=== PATIENT | male | born 1950 | race Caucasian/White ===

== ENCOUNTER 2020-05-19 07:47 | Outpatient (CLI) | payer MEDICARE, OTHER ==
--- NOTE | 2020-05-19 09:21 | MRI ---
MRI RIGHT SHOULDER PERFORMED WITHOUT CONTRAST ENHANCEMENT: Date: 05/19/2020 HISTORY: Right shoulder pain for years. FINDINGS: There is mild arthrosis of the AC joint with a slightly laterally downsloping acromion. There are ten dinosis changes of the infraspinatus tendon, but this appears intact. There is a very thinned appeara nce to the supraspinatus tendon. There is a partial undersurface tear with some retraction of some of the undersurface fibers. Some thin outer bursal fibers are still intact. More anteriorly, there is a focal area which appears to probably represent a full thickness nonretracted tear, and this is assoc iated with some fluid in the subacromial/subdeltoid recess. The subscapularis muscle and tendon are i ntact. The bicipital labral complex shows fairly extensive superior labral tear. There is tendinosis of the interarticular portion of the biceps tendon and a split tear. There is cystic change within the gleno id in this region, and tear extends to involve the posterior superior labrum to approximately mid equ ator level. Along the posterior inferior labrum is a paralabral cyst. There are arthritic changes of the glenohumeral joint space associated with this. The humeral head is slightly posteriorly subluxed. The inferior glenohumeral ligament is intact. IMPRESSION: 1. Moderate grade undersurface tear of the supraspinatus tendon. This appears to have a full thickne ss nonretracted component involving more of the far anterior fibers. 2. 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 In addition, there is a thickened appearance to the intraarticular portion of the biceps tendon and tendinosis change wi th what appears to be a split tear. 3. There is no significant rotator cuff muscle atrophy. There is some very mild atrophy to the super ior fibers of the subscapularis muscle. POS: EFREM
== END 2020-05-19 07:48 | disposition home or self-care (01) ==
LOC: SCSMRI 07:47
PROVIDERS: ATTEND Orthopaedic Surgery
DX: M75.101 Unspecified rotator cuff tear or rupture of right shoulder, not specified as traumatic (principal); M19.011 Primary osteoarthritis, right shoulder; S43.401A Unspecified sprain of right shoulder joint, initial encounter; M25.811 Other specified joint disorders, right shoulder

== ENCOUNTER 2020-06-19 06:36 | Day surgery (SDC) | payer MEDICARE, OTHER ==
[2020-06-18 15:09] VITALS: BMI 31.6
[~2020-06-19 06:36] MED LIST: Fentanyl 100 MCG/2 ML VIAL ONE; Fluorouracil 100 MG, Enoxaparin Sodium 25 MG, EPINEPHrine 0.3 MG in Ophthalmic Irrigati... IRR SCH; Midazolam HCl 2 mg/2 ml Vial ONE
[2020-06-19] MEDS ORDERED: Cyclopentolate 1% Opth Drop 2 ML BOT ONE (07:03)
[2020-06-19] MEDS ORDERED: Phenylephrine 2.5% Ophth Soln 5 ML BOT ONE (07:03)
[2020-06-19] MEDS ORDERED: Enoxaparin Sodium 30 MG/0.3 ML SYRINGE ONE (11:26)
[2020-06-19] MEDS ORDERED: CEFAZOLIN 1 GM VIAL ONE (11:26)
[2020-06-19] MEDS ORDERED: Bupivacaine PF 0.75% SDV 10 ML ONE (11:26)
[2020-06-19] MEDS ORDERED: Metoclopramide HCl 10 MG/2 ML VIAL ONE (11:26)
[2020-06-19] MEDS ORDERED: Ondansetron PF 4 MG/2 ML Vial ONE (11:26)
[2020-06-19] MEDS ORDERED: Maxitrol 0.1% Opth Oint 3.5 GM TUBE ONE (11:26)
[2020-06-19] MEDS ORDERED: Lidocaine 1% PF 5 ML VIAL ONE ×2 (11:26)
[2020-06-19] MEDS ORDERED: PROPOFOL 200 MG/20 ML VIAL ONE (11:26)
[2020-06-19] MEDS ORDERED: Triamcinolone 40 MG/ML VIAL ONE (11:26)
[2020-06-19] MEDS ORDERED: Lidocaine 4% PF 5 ML AMP ONE (11:26)
--- NOTE | 2020-06-19 14:20 | OP ---
DATE OF PROCEDURE: 06/19/2020 PREOPERATIVE DIAGNOSIS: Rhegmatogenous retinal detachment, right eye. POSTOPERATIVE DIAGNOSIS: Rhegmatogenous retinal detachment, right eye. PROCEDURES PERFORMED: Pars plana vitrectomy, retinal detachment repair, left eye. ANESTHESIA: General endotracheal anesthesia. PROCEDURE IN DETAIL: The patient was identified in the preoperative holding area. Appropriate informed consent for the planned surgical procedure on the left eye had been obtained. The patient was transported to the operative suite and appropriate cardiopulmonary monitoring established. General endotracheal anesthesia was initiated. Retrobulbar block was placed. The patient was prepped and draped in usual sterile manner for ophthalmic surgery on the left eye. Lid speculum was placed on the left eye. A 27-gauge trocar was placed through the conjunctiva and sclera superotemporally, inferotemporally, and superonasally. Infusion line was placed inferotemporally. Light pipe and vitreous cutter were inserted to the eye. Core vitrectomy was performed. At this time, detachment at 12 o'clock was noted as were tears noted, two tears at the 8 o'clock position. Posterior drained retinotomy was created at the edge of the superior retinal detachment. 360 vitrectomy was performed using wide field viewing system and scleral depression. Laser was placed into all non-detached areas of the retina. Complete air-fluid exchange was performed 10 minutes being left for fluid to drain posteriorly. 28% sulfur hexafluoride gas was infused into the eye. Trocars were removed. Superonasal sclerotomy was suture closed with 6-0 plain gut suture. Retrobulbar Kenalog and subconjunctival Ancef were placed. Antibiotic ointment was placed. Eye was patched and shielded. The patient was taken to postoperative recovery unit in good condition having suffered no immediate perioperative complications. The patient has been advised to position left side down. Followup in the morning with Dr. Thomas. Job ID: [id number]
== END 2020-06-19 11:40 | disposition home or self-care (01) ==
LOC: SDC 06:36
PROVIDERS: ATTEND Ophthalmology Retina Specialist
PROC: 08T43ZZ Resection of Right Vitreous, Percutaneous Approach (ICD-10-PCS; principal; 2020-06-19)
PROC: 08QE3ZZ Repair Right Retina, Percutaneous Approach (ICD-10-PCS; 2020-06-19)
DX: H33.022 Retinal detachment with multiple breaks, left eye (principal); I48.91 Unspecified atrial fibrillation; G47.30 Sleep apnea, unspecified; M19.90 Unspecified osteoarthritis, unspecified site; Z79.01 Long term (current) use of anticoagulants; Z79.899 Other long term (current) drug therapy
CPT/HCPCS: 67025; J0171; J0690; J1650; J2001; J2250; J2405; J2704; J2765; J3010; J3301; J3490; J9190

== ENCOUNTER 2023-07-11 09:48 | Outpatient (CLI) | payer MEDICARE, OTHER ==
[2023-07-11 11:02] LABS: #Basophils 0.1 10x3/uL (0.0-0.2); #Eosinphils 0.4 10x3/uL (0.0-0.5); #Monocytes 1.5 10x3/uL (0.0-1.1); #Neutrophils 6.8 10x3/uL (1.5-8.4); %Basophils 0.9 % (0.0-2.0); %Eosinophils 3.5 % (0.0-6.0); %Lymphocytes 22.9 % (18.0-47.0); %Monocytes 13.3 % (0.0-10.0); %Neutrophils 59.1 % (40.0-75.0); Hematocrit 45.1 % (38.8-50.0); Hemoglobin 15.2 g/dL (13.5-17.5); Mean Corpuscular HGB CONC 33.7 g/dL (32.0-36.0); Mean Corpuscular Hemoglobin 33.3 pg (27.0-33.0); Mean Corpuscular Volume 98.7 fl (81.2-95.1); Mean Platelet Volume 10.4 fl (7.4-10.4); Platelet Count 232 10x3/uL (150-450); RBC Distribution Width 13.4 % (11.5-14.5); Red Blood Cell (RBC) Count 4.57 10x6/uL (4.32-5.72); White Blood Cell (WBC) Count 11.4 10x3/uL (3.5-10.5)
[2023-07-11 11:38] LABS: Anion Gap 13 mmol/L (10-20); BUN (Urea Nitrogen) 19 mg/dL (8.4-25.7); Calc. Creatinine Clearance 0 mL/min (70-130); Calcium 9.3 mg/dL (7.8-10.44); Carbon Dioxide 23 mmol/L (23-31); Chloride 109 mmol/L (98-107); Estimated GFR 92; Glucose 100 mg/dL (83-110); Sodium 141 mmol/L (136-145)
[2023-07-11 11:46] LABS: Prothrombin Time 11.2 sec (9.5-12.1)
== END 2023-07-11 09:49 | disposition home or self-care (01) ==
LOC: LABBT 09:48
PROVIDERS: ATTEND Orthopaedic Surgery
DX: Z01.818 Encounter for other preprocedural examination (principal); M19.011 Primary osteoarthritis, right shoulder
CPT/HCPCS: 80048; 85025; 85610; 87081; 93005; 93010

== ENCOUNTER 2023-07-14 05:38 | Observation (INO) | payer MEDICARE, OTHER ==
[2023-07-11 10:29] VITALS: BMI 29.8
[2023-07-14] MEDS ORDERED: PROPOFOL 20 ML ONE (06:10)
[2023-07-14] MEDS ORDERED: Rocuronium Bromide 10 MG/ML (10ML VIAL) ONE ×3 (06:10→08:24)
[2023-07-14] MEDS ORDERED: ePHEDrine Sulfate 50 MG/10 ML VIAL ONE ×2 (06:16→06:30)
[2023-07-14] MEDS ORDERED: PROPOFOL 200 MG/20 ML VIAL ONE (06:30)
[2023-07-14] MEDS ORDERED: Ondansetron PF 4 MG/2 ML Vial ONE ×2 (06:30→08:06)
[2023-07-14] MEDS ORDERED: Dexamethasone 20 MG/5 ML VIAL ONE ×2 (06:30→08:06)
[2023-07-14] MEDS ORDERED: fentaNYL 50 mcg/mL 1 mL Vial ONE ×2 (06:34→07:20)
[2023-07-14] MEDS ORDERED: Midazolam HCl 2 mg/2 ml Vial ONE (06:35)
[2023-07-14] MEDS ORDERED: Sodium Chloride 0.9% 100 ML ONE (06:41)
[2023-07-14] MEDS ORDERED: Tranexamic Acid 1,000 MG/10 ML VIAL ONE (06:41)
[2023-07-14] MEDS ORDERED: Vancomycin (BATCH) 1.5 GM/300 ML BAG ONE (06:42)
[2023-07-14] MEDS ORDERED: CEFAZOLIN 2 GM VIAL ONE (06:49)
[2023-07-14] MEDS ORDERED: Ropivacaine 0.2% HCl/PF 20 ML ONE (07:16)
[2023-07-14] MEDS ORDERED: Ropivacaine 0.5% HCl/PF (150 MG/30 ML VIAL) ONE (07:16)
[2023-07-14] MEDS ORDERED: fentaNYL PF 100 MCG/2 ML SYRINGE ONE (07:16)
[2023-07-14] MEDS ORDERED: fentaNYL 50 mcg/mL 1 mL Vial SLOW IVP PRN (07:49)
[2023-07-14] MEDS ORDERED: Zolpidem Tartrate 5 MG TAB PO PRN (08:00)
[2023-07-14] MEDS ORDERED: Ondansetron PF 4 MG/2 ML Vial IVP PRN (08:00)
[2023-07-14] MEDS ORDERED: HYDROcodone/Acetaminophen 10/325 mg Tablet PO PRN ×2 (08:00)
[2023-07-14] MEDS ORDERED: Ropivacaine 0.2% 550 ML 550 ML NERVE BLCK SCH (08:00)
[2023-07-14] MEDS ORDERED: traMADol HCl 50 MG TAB PO PRN ×2 (08:00)
[2023-07-14] MEDS ORDERED: Promethazine HCl 25 MG/ML VIAL IM PRN (08:00)
[2023-07-14] MEDS ORDERED: SUGAMMADEX SODIUM 200 MG/2 ML VIAL ONE (09:06)
[2023-07-14] MEDS ORDERED: Acetaminophen 325 MG TAB PO PRN (09:27)
[2023-07-14] MEDS ORDERED: diphenhydrAMINE 50 MG CAP PO PRN (09:27)
[2023-07-14] MEDS ORDERED: Milk Of Magnesia 30 ML UDCUP PO PRN (09:27)
[2023-07-14] MEDS ORDERED: Bisacodyl 10 MG SUPP PR PRN (09:27)
[2023-07-14] MEDS ORDERED: valACYclovir 500 MG TAB PO PRN (16:11)
[2023-07-14] MEDS ORDERED: Flecainide 50 MG TAB PO PRN (16:12)
[2023-07-14] MEDS: CEFAZOLIN 2 GM in Sodium Chloride 0.9% 100 ML IVPB SCH ×2 (16:54→22:05)
[2023-07-14] MEDS: Dextrose 5 %-0.45 % NaCl 1,000 ML IV SCH (16:54)
[2023-07-14] MEDS: Famotidine 20 MG TAB PO SCH (20:09)
[2023-07-14] MEDS ORDERED: Atorvastatin Calcium 20 MG TAB PO SCH (21:00)
[2023-07-15] MEDS: Dextrose 5 %-0.45 % NaCl 1,000 ML IV SCH ×2 (05:37→14:51)
[2023-07-15 07:56] VITALS: TEMP 97.8
[2023-07-15] MEDS ORDERED: Apixaban 5 MG TAB PO SCH (09:00)
[2023-07-15] MEDS ORDERED: CO Q-10 CAPSULE 50 MG PO SCH (09:00)
[2023-07-15] MEDS ORDERED: Aspirin 81 mg Enteric Coated Tablet PO SCH (09:00)
[2023-07-15] MEDS: Famotidine 20 MG TAB PO SCH (09:12)
[2023-07-15] MEDS ORDERED: fentaNYL 50 mcg/mL 1 mL Vial ONE (12:30)
[2023-07-15] MEDS ORDERED: Bupivacaine HCl 0.5%/Epinephrine 1:200,000/PF 30 ml Vial ONE (12:40)
[2023-07-15 15:53] VITALS: BP 136/80
== END 2023-07-15 16:00 | disposition home or self-care (01) ==
LOC: SDC 05:38 → SURG A 15:02
PROVIDERS: ADMIT Orthopaedic Surgery; ATTEND Orthopaedic Surgery
PROC: 0RRJ0JZ Replacement of Right Shoulder Joint with Synthetic Substitute, Open Approach (ICD-10-PCS; principal; 2023-07-14)
PROC: 0LS30ZZ Reposition Right Upper Arm Tendon, Open Approach (ICD-10-PCS; 2023-07-14)
DX: M19.011 Primary osteoarthritis, right shoulder (principal); M75.21 Bicipital tendinitis, right shoulder; I48.91 Unspecified atrial fibrillation; I42.9 Cardiomyopathy, unspecified; K21.9 Gastro-esophageal reflux disease without esophagitis; I25.10 Atherosclerotic heart disease of native coronary artery without angina pectoris; Z88.1 Allergy status to other antibiotic agents; Z88.5 Allergy status to narcotic agent; Z79.01 Long term (current) use of anticoagulants; Z79.82 Long term (current) use of aspirin; Z79.899 Other long term (current) drug therapy
CPT/HCPCS: 23472; 24340; 97110; 97116 ×2; 97530; A4306; C1713 ×3; C1776 ×2; J3010 ×2; J3370; J1100; J2250; J2405; J2704; J2795; J3490; J7042

== ENCOUNTER 2024-05-22 13:49 | Inpatient (IN) | payer MEDICARE, OTHER ==
[2024-05-22 14:58] LABS: #Basophils 0.04 10x3/uL (0.0-0.2); %Basophils 0.3 % (0.0-1.0); %Lymphocytes 10.1 % (21.0-51.0); %Monocytes 7.8 % (0.0-10.0); %Neutrophils 80.1 % (42.0-75.0); Hematocrit 48.1 % (42.0-52.0); Mean Corpuscular HGB CONC 33.3 g/dL (32.0-36.0); Mean Corpuscular Hemoglobin 34.5 pg (27.0-31.0); Mean Corpuscular Volume 103.7 fL (78.0-98.0); Mean Platelet Volume 9.9 fL (7.4-10.4); Platelet Count 226 10x3/uL (130-400); RBC Distribution Width 13.7 % (11.5-14.5); Red Blood Cell (RBC) Count 4.64 mill/uL (4.70-6.10)
[2024-05-22 15:19] LABS: ALT (SGPT) 209 U/L (8-55); AST (SGOT) 101 U/L (5-34); Albumin 3.4 g/dL (3.4-4.8); Alkaline Phosphatase 94 U/L (40-110); Anion Gap 13 mmol/L (10-20); BUN (Urea Nitrogen) 25 mg/dL (8.4-25.7); Bilirubin, Total 1.2 mg/dL (0.2-1.2); Calc. Creatinine Clearance 0 mL/min (70-130); Calcium 9.9 mg/dL (7.8-10.44); Carbon Dioxide 26 mmol/L (23-31); Chloride 105 mmol/L (98-107); Estimated GFR 67; Globulin 3.5 g/dL (2.4-3.5); Glucose 103 mg/dL (83-110); Potassium 3.5 mmol/L (3.5-5.1); Protein, Total 6.9 g/dL (5.8-8.1); Sodium 140 mmol/L (136-145)
[2024-05-22 15:23] LABS: Troponin I Less than 0.010 ng/mL (< 0.028)
[2024-05-22] MEDS ORDERED: Acetaminophen 325 MG TAB PO PRN (18:17)
[2024-05-22] MEDS ORDERED: Senokot S 8.6-50 MG TAB PO PRN (18:17)
[2024-05-22] MEDS ORDERED: Calcium Carbonate 500 MG ChewTAB PO PRN (18:17)
[2024-05-22] MEDS ORDERED: Nitroglycerin 0.4 MG TAB (25 Tab Bottle) SL PRN (18:21)
[2024-05-22 19:17] LABS: Troponin I Less than 0.010 ng/mL (< 0.028)
[2024-05-22] MEDS ORDERED: Albuterol 2.5 MG (3 mL) NEB NEB PRN (19:17)
[2024-05-22 22:41] VITALS: BMI 31.8
[2024-05-22 23:11] LABS: Troponin I Less than 0.010 ng/mL (< 0.028)
[2024-05-22] MEDS: Flecainide 50 MG TAB PO SCH (23:49)
[2024-05-22] MEDS: Sodium Chloride 0.9% 1,000 ML IV SCH (23:51)
[2024-05-23 05:16] LABS: #Basophils Less than 0.03 10x3/uL (0.0-0.2); %Basophils 0.2 % (0.0-1.0); %Eosinophils 0.4 % (0.0-10.0); %Lymphocytes 16.8 % (21.0-51.0); %Monocytes 8.9 % (0.0-10.0); Hematocrit 43.2 % (42.0-52.0); Hemoglobin 14.5 g/dL (14.0-18.0); Mean Corpuscular HGB CONC 33.6 g/dL (32.0-36.0); Mean Corpuscular Hemoglobin 34.9 pg (27.0-31.0); Mean Corpuscular Volume 104.1 fL (78.0-98.0); Mean Platelet Volume 10.3 fL (7.4-10.4); Platelet Count 203 10x3/uL (130-400); RBC Distribution Width 13.7 % (11.5-14.5); Red Blood Cell (RBC) Count 4.15 mill/uL (4.70-6.10)
[2024-05-23 05:47] LABS: Anion Gap 13 mmol/L (10-20); BUN (Urea Nitrogen) 21 mg/dL (8.4-25.7); Calc. Creatinine Clearance 128 mL/min (70-130); Carbon Dioxide 24 mmol/L (23-31); Chloride 105 mmol/L (98-107); Estimated GFR 91; Glucose 163 mg/dL (83-110); Sodium 138 mmol/L (136-145)
[2024-05-23 06:25] LABS: Magnesium 2.1 mg/dL (1.6-2.6)
[2024-05-23] MEDS: predniSONE 20 MG TAB PO SCH (08:28)
[2024-05-23] MEDS: Pantoprazole DR 40 MG TAB PO SCH (08:28)
[2024-05-23] MEDS: Aspirin 81 mg Enteric Coated Tablet PO SCH (08:29)
[2024-05-23] MEDS: Mometasone 200 MCG HFA INHALER (RT USE) INH SCH (09:11)
[2024-05-23] MEDS: Atovaquone 750 MG/5 ML UDCUP PO SCH (10:08)
[2024-05-23] MEDS ORDERED: Communication Order-Pharmacy FS SCH (10:30)
[2024-05-23] MEDS ORDERED: hydrALAZINE 20 MG/ML VIAL SLOW IVP PRN (12:52)
[2024-05-24 04:45] LABS: ALT (SGPT) 181 U/L (8-55); AST (SGOT) 71 U/L (5-34); Alkaline Phosphatase 77 U/L (40-110); Anion Gap 12 mmol/L (10-20); BUN (Urea Nitrogen) 21 mg/dL (8.4-25.7); Bilirubin, Total 1.1 mg/dL (0.2-1.2); Calc. Creatinine Clearance 107 mL/min (70-130); Calcium 9.3 mg/dL (7.8-10.44); Carbon Dioxide 26 mmol/L (23-31); Cardiac Risk 2.9 (Less than 4.5); Chloride 105 mmol/L (98-107); Cholesterol 144 mg/dl (< 200 Desired); Estimated GFR 75; Glucose 139 mg/dL (83-110); HDL Cholesterol 49 mg/dL (>60 Neg Risk); LDL Cholesterol, Calculated 82 mg/dL; Sodium 139 mmol/L (136-145); Triglycerides 64 mg/dL (Less than 150)
[2024-05-24] MEDS: Sodium Chloride 0.9% 1,000 ML IV SCH ×2 (05:56→10:02)
[2024-05-24] MEDS ORDERED: fentaNYL 50 mcg/mL 1 mL Vial ONE (07:29)
[2024-05-24] MEDS ORDERED: Midazolam HCl 2 mg/2 ml Vial ONE (07:29)
[2024-05-24] MEDS ORDERED: Heparin 10,000 UNITS/ 10 ML VIAL ONE ×2 (07:30→08:06)
[2024-05-24] MEDS ORDERED: Nitroglycerin 50 MG/250 ML BOT 0 ML ONE (08:06)
[2024-05-24] MEDS ORDERED: Protamine Sulfate 50 MG/5 ML VIAL ONE (08:57)
[2024-05-24] MEDS ORDERED: Sodium Chloride 0.9% 200 ML IV PRN (09:07)
[2024-05-24] MEDS ORDERED: Acetaminophen/Codeine 30-300mg Tablet PO PRN ×2 (09:07)
[2024-05-24] MEDS ORDERED: Nitroglycerin 0.4 MG TAB (25 Tab Bottle) SL PRN (09:07)
[2024-05-24 16:46] VITALS: BP 127/75; TEMP 97.5
[2024-05-26] MEDS ORDERED: Apixaban 5 MG TAB PO SCH (09:00)
== END 2024-05-24 17:25 | disposition home or self-care (01) | DRG 287 ==
LOC: ERS 13:49 → 2SW 18:21 → OBSVTOIN 05-23 14:52
PROVIDERS: ADMIT Internal Medicine; ATTEND Internal Medicine
PROC: 4A023N7 Measurement of Cardiac Sampling and Pressure, Left Heart, Percutaneous Approach (ICD-10-PCS; principal; 2024-05-24)
PROC: B2111ZZ Fluoroscopy of Multiple Coronary Arteries using Low Osmolar Contrast (ICD-10-PCS; 2024-05-24)
PROC: B2151ZZ Fluoroscopy of Left Heart using Low Osmolar Contrast (ICD-10-PCS; 2024-05-24)
DX: R07.89 Other chest pain (principal); I50.32 Chronic diastolic (congestive) heart failure; I13.0 Hypertensive heart and chronic kidney disease with heart failure and stage 1 through stage 4 chronic kidney disease, or unspecified chronic kidney disease; J82.81 Chronic eosinophilic pneumonia; J84.9 Interstitial pulmonary disease, unspecified; I49.5 Sick sinus syndrome; E78.5 Hyperlipidemia, unspecified; G47.33 Obstructive sleep apnea (adult) (pediatric); N18.2 Chronic kidney disease, stage 2 (mild); I25.10 Atherosclerotic heart disease of native coronary artery without angina pectoris; Z88.8 Allergy status to other drugs, medicaments and biological substances; Z79.01 Long term (current) use of anticoagulants; Z98.890 Other specified postprocedural states; Z79.82 Long term (current) use of aspirin; Z87.891 Personal history of nicotine dependence; I48.0 Paroxysmal atrial fibrillation; D63.1 Anemia in chronic kidney disease
CPT/HCPCS: 36415; 71045; 80048; 80053; 80061; 83735; 83880; 84484; 85025; 85347; 93005; 93458; 99152; C1769; J1644; J2250; J2720; J3010; J7030; J7512